=== PATIENT | female | born 2000 | race American Indian/Alaskan Native ===

== ENCOUNTER 2020-05-16 16:08 | Outpatient (CLI) | payer MEDICAID ==
[2020-05-16] MEDS ORDERED: LACTATED RINGERS 500 ML IV ONE (16:31)
[2020-05-16 16:43] VITALS: BP 125/57
[2020-05-16] MEDS ORDERED: TERBUTALINE 1 MG/1 ML INJ SUB-Q SCH (17:00)
[2020-05-16 17:01] LABS: Bilirubin,Urine NEG (Negative); Blood,Urine SM (Negative); Color,Urine Yellow (Yellow); Mucus,Urine FEW /HPF; Protein,Urine <15 mg/dL mg/dL (Negative); Urobilinogen,Urine < 2.0 mg/dL (<2.0)
[2020-05-16] MEDS ORDERED: LACTATED RINGERS 1,000 ML IV ONE (17:20)
--- NOTE | 2020-05-16 18:58 | Ultrasound Report ---
ULTRASOUND OBSTETRIC LIMITED INDICATION / CLINICAL INFORMATION: vag spotting. Clinical Gestational Age (GA): 22.3 weeks.days COMPARISON: None available. FINDINGS: HEART RATE (beats per minute): 137 AMNIOTIC FLUID = subjectively normal PRESENTATION: position was documented as variable. ADDITIONAL FINDINGS: Posterior/fundal/left lateral placental position with grade 0 appearance. No def inite lifting or separation of the placenta. Placental margin is free of the cervical os. Cervix marti ures 4.2 cm in length. IMPRESSION: 1. No significant abnormality. 2. Additional findings as above. Signer Name: Omega Rodirgues MD Signed: 05/16/2020 6:54 PM Workstation Name: [id number]
== END 2020-05-16 18:32 | disposition home or self-care (01) ==
LOC: TRG 16:08 → APU 16:09 → TRG 18:32
PROVIDERS: ATTEND Obstetrics & Gynecology
DX: O26.852 Spotting complicating pregnancy, second trimester (principal); O26.892 Other specified pregnancy related conditions, second trimester; R25.2 Cramp and spasm; O47.02 False labor before 37 completed weeks of gestation, second trimester; Z3A.22 22 weeks gestation of pregnancy
CPT/HCPCS: 59025; 76815; 81001; 87086; 96360; J7120

== ENCOUNTER 2020-06-28 14:55 | Outpatient (CLI) | payer MEDICAID ==
[2020-06-28 16:07] LABS: Bilirubin,Urine NEG (Negative); Blood,Urine LG (Negative); Color,Urine Yellow (Yellow); Mucus,Urine FEW /HPF; Urobilinogen,Urine < 2.0 mg/dL (<2.0)
[2020-06-28 16:08] LABS: RBC,Urine > 182.0 /HPF (0.0-6.0)
[2020-06-28] MEDS ORDERED: LACTATED RINGERS 1,000 ML IV SCH (16:45)
[2020-06-28 17:20] VITALS: BP 122/57
[2020-06-28] MEDS ORDERED: ACETAMINOPHEN 500 MG TAB PO SCH (17:30)
--- NOTE | 2020-06-28 17:31 | Ultrasound Report ---
ULTRASOUND OBSTETRIC LIMITED INDICATION / CLINICAL INFORMATION: Evaluate amniotic fluid index and placenta. COMPARISON: Limited OB ultrasound from 05/16/2020. FINDINGS: AMNIOTIC FLUID INDEX (cm) = 16.1 PRESENTATION: Cephalic. HEART RATE (beats per minute): 135 ADDITIONAL FINDINGS: The placenta is posterofundal and appears unremarkable. IMPRESSION: Single live intrauterine with a normal MINE and unremarkable appearing placenta as above. Signer Name: Yunior Torres MD Signed: 06/28/2020 5:26 PM Workstation Name: [id number]
== END 2020-06-28 17:47 | disposition home or self-care (01) ==
LOC: TRG 14:55 → APU 14:56 → TRG 17:47
PROVIDERS: ATTEND Obstetrics & Gynecology
DX: O26.893 Other specified pregnancy related conditions, third trimester (principal); R19.7 Diarrhea, unspecified; R58 Hemorrhage, not elsewhere classified; R25.2 Cramp and spasm; Z3A.28 28 weeks gestation of pregnancy
CPT/HCPCS: 59025; 76815; 81001